=== PATIENT | female | born 1945 | race Caucasian/White ===

== ENCOUNTER → 2016-07-20 | Outpatient (CLI) | payer OTHER, MEDICARE ==
--- NOTE | 2016-07-20 16:52 | MA ---
Screening Digital Mammogram With iCAD Analysis Clinical Indications: Routine screening. Technique: Standard cephalocaudal and mediolateral oblique projections were obtained. This examinatio n was processed by the iCAD computer aided detection system. Comparison: July 2015, June 2014, June 2013, June 2012, January 2011, December 2009, 2007. Breast density: Type B; Scattered fibroglandular densities. Findings: CAD was reviewed. There is a possible developing nodular asymmetry in the upper left breast noted on the oblique view. No suspicious microcalcifications are identified. The right breast is sta ble in appearance. Impression: Possible developing left breast nodule requires further evaluation, BI-RADS 0. Recommendation: Spot compression assessment of the left breast with ultrasound suggested if the abnor mality persists on diagnostic evaluation. [facility] will send a result letter to the patient. Negative mammography should not preclude additional workup of a clinically suspicious finding. The patient's information is entered into a reminder system with a target due date for her next mammo gram.
== END ==
LOC: BRMIMAGING 13:28
DX: Z12.31 Encounter for screening mammogram for malignant neoplasm of breast (principal)
CPT/HCPCS: G0202

== ENCOUNTER → 2016-07-27 | Outpatient (CLI) | payer OTHER, MEDICARE ==
--- NOTE | 2016-07-27 09:56 | MA ---
Left Diagnostic Digital Mammogram with iCAD Clinical Indications: Asymmetric density on recent screening mammogram. Technique: Digital spot compression mediolateral oblique and true lateral views, three views. This e xamination was processed by the iCAD computer-aided detection system. Comparison: Recent mammogram 2016, 2015, 2013, 2012. Breast Density: C, 50-75%. Findings: Previous asymmetric density is no longer identified on the spot views and is not identified on the previous CC view. This region appears stable when compared to multiple prior studies. This is consistent with normal overlapping breast parenchyma. Impression: ACR BI-RADS 2: Benign left mammogram. Recommendation: Annual mammograms with next screening mammograms in July 2017. [facility] will send a result letter to the patient. Negative mammography should not preclude additional workup of a clinically suspicious finding. Findings and recommendations have been discussed with the patient who agrees with the plan. The patient's information is entered into a reminder system with a target due date for her next mammo gram.
== END ==
LOC: BRMIMAGING 09:08
DX: R92.8 Other abnormal and inconclusive findings on diagnostic imaging of breast (principal)
CPT/HCPCS: G0206

== ENCOUNTER → 2016-10-13 | Outpatient (CLI) | payer OTHER, MEDICARE | LOC: CIMAGING 09:29 | PROVIDERS: ATTEND Family Medicine | DX: S69.91XA Unspecified injury of right wrist, hand and finger(s), initial encounter (principal) | CPT/HCPCS: 73140-PO ==

== ENCOUNTER → 2017-07-24 | Outpatient (CLI) | payer OTHER, MEDICARE | LOC: BRMIMAGING 13:21 | PROVIDERS: ATTEND Family Medicine | DX: Z12.31 Encounter for screening mammogram for malignant neoplasm of breast (principal) ==

== ENCOUNTER → 2018-08-19 | Outpatient (CLI) | payer OTHER, MEDICARE | LOC: BRMIMAGING 12:57 | PROVIDERS: ATTEND Family Medicine | DX: Z12.31 Encounter for screening mammogram for malignant neoplasm of breast (principal) ==

== ENCOUNTER 2018-10-10 10:32 | Emergency (ER) | payer OTHER, MEDICARE ==
[2018-10-10] MEDS ORDERED: NS 1,000 ML IV ONE (11:10)
[2018-10-10] MEDS ORDERED: ONDANSETRON DISINTEGRATING 4 MG TAB ONE (11:57)
[2018-10-10] MEDS ORDERED: ONDANSETRON DISINTEGRATING 4 MG TAB PO ONE (12:09)
--- NOTE | 2018-10-10 12:55 | EDPHY ---
H & P Time Seen by Provider: 10/10/18 12:08 HPI/ROS: This patient describes vomiting and diarrhea. She explains that she came back from a trip from [place] 2 weeks ago I had URI symptoms upon arrival back to the [place] Consisting of coryza and the mild sore throat that resolved. She this was followed by vomiting diarrhea that lasted for approximately [address] Rodriges, family practitioner who recommended light diet and Gatorade. She reports that she improved with this plan after being seen 2 days prior to arrival but Dr. Rodriges but then had recurrence of symptoms this a.m. With 2 episodes of vomiting and ongoing watery diarrhea. She has ongoing nausea currently. She reports no other associated symptoms. She reports that her URI symptoms have resolved-no longer having coryza sore throat or other HEENT complaints. ROS: Constitutional: No high fevers. HEENT: No sinus pain. Pulmonary: No dyspnea. No significant cough. Cardiovascular: No lightheadedness GI: No abdominal pain or distension. No he hematemesis, coffee-ground emesis, dark tarry stools or bloody stools. : No complaints 7 point review of symptoms is performed and otherwise negative with exception of pertinent positives and negatives listed in HPI and ROS Smoking Status: Never smoked Physical Exam: General Appearance: Alert, no distress. Eyes: Pupils equal and round no pallor or injection. ENT, Mouth: Mucous membranes dry. Respiratory: There are no retractions, lungs are clear to auscultation. Cardiovascular: Regular rate and rhythm. Gastrointestinal: Abdomen is soft and nontender, no masses, bowel sounds normal. Neurological: GCS 15 Skin: Warm and dry, no rashes. Musculoskeletal: Neck is supple nontender. Extremities are symmetrical, full range of motion. Psychiatric: Mood and affect normal DIFFERENTIAL DIAGNOSIS: After history and physical exam differential diagnosis was considered for viral gastroenteritis with dehydration, viral URI, colitis- bacterial or parasitic Constitutional: Initial Vital Signs Temperature (C) 36.9 C 10/10/18 11:02 Heart Rate 86 10/10/18 11:02 Respiratory Rate 18 10/10/18 11:02 Blood Pressure 148/76 H 10/10/18 11:02 O2 Sat (%) 95 10/10/18 11:02 O2 Delivery Mode Room Air Allergies/Adverse Reactions: No Known Allergies Allergy (Unverified 10/10/18 11:08) Home Medications: Medication Instructions Recorded Ondansetron Odt [Zofran Odt] 4 - 8 mg PO Q4PRN PRN #4 tab 10/10/18 Statin 10/10/18 MDM/Departure - MDM Medications Given: Discontinued Medications Sodium Chloride (Ns) 1,000 mls @ 0 mls/hr IV EDNOW ONE; Wide Open PRN Reason: Protocol Stop: 10/10/18 11:11 Last Admin: 10/10/18 12:05 Dose: 1,000 mls Ondansetron HCl (Zofran Odt) 4 mg PO EDNOW ONE Stop: 10/10/18 12:10 Last Admin: 10/10/18 12:00 Dose: 4 mg ED Course/Re-evaluation: IV normal saline bolus Zofran sublingual shortly after arrival resolution of nausea. She tolerated p.o. Fluids thereafter Studies: Normal CBC was kept and very slight leukocytosis, normal metabolic panel, normal POC UA dip I counseled regarding her studies. Patient was unable to provide a stool study. I think this patient has a viral gastroenteritis and counseled regarding this. Plan is to go home on Zofran, Light diet follow up primary care physician for any ongoing symptoms. - Depart Disposition: Home, Routine, Self-Care Clinical Impression: Gastroenteritis, Dehydration Condition: Good Instructions: Gastroenteritis (ED) Additional Instructions: Diagnosis: Gastroenteritis 2. Dehydration Plan: Drink plenty fluids Light diet to feel improved Zofran for nausea vomiting if needed Imodium if needed for diarrhea Follow up with her primary care physician and/or gastroenterology-Dr. Shaikh for any ongoing symptoms persist beyond the next few days despite the treatment plan Return emergency department for any significant worsening despite the treatment plan. Prescriptions: Ondansetron Odt [Zofran Odt] 4 - 8 mg PO Q4PRN PRN #4 tab PRN Reason: Vomiting Referrals: Lily Rodriges MD [Primary Care Provider] - As per Instructions
[2018-10-10 13:50] VITALS: BP 134/66
== END 2018-10-10 14:40 | disposition home or self-care (01) ==
LOC: CED 10:32
DX: K52.9 Noninfective gastroenteritis and colitis, unspecified (principal); E86.0 Dehydration
CPT/HCPCS: 80048-ER; 85025-QW-ER; 96360-ER; 99284-ER